=== PATIENT | female | born 1995 | race Two or more races ===

== ENCOUNTER 2017-02-03 22:01 | Emergency (ER) | payer MEDICAID ==
--- NOTE | 2017-02-03 22:17 | NUR ---
DURING TRIAGE ASSESSMENT, PATIENT STATES SHES HAD A FEVER ALL DAY. PATIENT DID NOT HAVE A FEVER DURING TRAIGE, PATIENT DID NOT WANT TO CONTINUE TRIAGE ASSESSMENT AND WISHES TO GO HOME. PATIENT THEN LEFT [facility]
== END 2017-02-03 22:24 | disposition left against medical advice (07) ==
LOC: ER 22:04
DX: Z53.21 Procedure and treatment not carried out due to patient leaving prior to being seen by health care provider (principal)